=== PATIENT | male | born 1975 | race Two or more races ===

== ENCOUNTER → 2024-02-11 11:20 | Outpatient (REF) | payer OTHER, SELFPAY | LOC: HWRAD 11:20 | PROVIDERS: ATTENDING PHYSICIAN Nurse Practitioner Family | DX: R05.1 Acute cough (principal) | CPT/HCPCS: 71046 ==

== ENCOUNTER 2024-02-21 17:33 | Emergency (ER) | payer OTHER, SELFPAY ==
[2024-02-21 17:35] VITALS: BP 131/83
[2024-02-21 17:57] LABS: % Basophils 0.6 % (0-2); % Immature Granulocytes 0.4 % (0-0.5); % Lymphocytes 15.2 % (20.5-51.1); % Monocytes 9.6 % (1.7-9.3); % Neutrophils 70.2 % (42.2-75.2); Absolute Basophils 0.1 10^3/uL (0-0.2); Absolute Eosinophils 0.3 10^3/uL (0-0.7); Absolute Lymphocytes 1.3 10^3/uL (1.2-3.4); Absolute Monocytes 0.8 10^3/uL (0.1-0.6); Hematocrit 36.6 % (39.0-52.0); Hemoglobin 11.7 g/dL (13.0-18.0); Mean Corpuscular Hgb 18.8 pg (27.0-31.0); Mean Corpuscular Volume 58.8 fL (80.0-94.0); Mean Platelet Volume 9.4 fL (7.4-10.4); Nucleated Red Blood Cells % 0 % (-); Platelet Count 374 10^3/uL (130-400); Red Blood Cell Count 6.22 10^6/uL (4.70-6.10); Red Cell Dist. Width 17.7 % (11.5-14.5); White Blood Cell Count 8.5 10^3/uL (4.8-10.8)
[2024-02-21 18:16] LABS: ALT (SGPT) 112 U/L (0-50); AST (SGOT) 89 U/L (17-59); Albumin 4.3 g/dl (3.5-5.0); Alkaline Phosphatase 136 U/L (38-126); Blood Urea Nitrogen 13 mg/dl (9-20); COVID-19 Antigen Negative (Negative); Calcium 9.4 mg/dl (8.4-10.2); Carbon Dioxide 18 mmol/L (22-30); Chloride 101 mmol/L (98-107); Glucose 126 mg/dl (70-99); Potassium 4.6 mmol/L (3.5-5.1); Sodium 138 mmol/L (135-145); Total Bilirubin 0.7 mg/dl (0.2-1.3); Total Protein 7.3 g/dl (6.3-8.2); eGFR > 60.00
--- NOTE | 2024-02-21 22:08 | ED.GENMED ---
History of Present Illness
General
Chief Complaint: Breathing Problem
Source: patient
Exam Limitations: none
Time Seen by Provider: 02/21/24 20:46
Nursing documentation reviewed up to this point in time: agreed with
History of Present Illness
History of Present Illness:
Patient diagnosed with pneumonia 2 weeks ago and treated with Zithromax, presents to ED secondary to recurrent chills, low-grade fever, along with cough over the past 3 days. Patient spoke with his primary care physician and was prescribed
doxycycline, which was started yesterday. Denies nausea, vomiting, or diarrhea. Denies shortness of breath. Denies headache. Denies dizziness. Denies neck pain. Denies decreased appetite. Of note, when patient was originally diagnosed with
pneumonia, patient states that it was based on checks x-ray along with history of his son who was admitted and treated for pneumonia. When completing Zithromax, patient states that his symptoms have resolved completely. Patient thought he was back
to his baseline health for 3 days, until his symptoms returned. Denies recent travel or surgery. Denies back pain. Denies leg pain or swelling.
Review of Systems
Review of Systems
Allergies reviewed?: Yes
All Other Systems: ROS reviewed and negative except as documented in HPI and ROS
Constitutional: Reports fever and chills
EENT: Reports no symptoms
Respiratory: Reports cough; Denies trouble breathing
Cardiac: Reports no symptoms; Denies chest pain
ABD/GI: Reports no symptoms; Denies abdominal pain, vomiting or diarrhea
Musculoskeletal: Reports no symptoms
Skin: Reports no symptoms
Neurological: Reports no symptoms; Denies dizzy or headache
Phy Exam
Physical Exam
Physical Exam:
Physical Exam
General: no apparent distress, not acutely ill. afebrile.
Head: nc/at. eomi
Neck: supple. no meningeal signs.
Heart: s1/s2 regular rate and rhythm, no murmur. equal radial pulses.
Lungs: no acute respiratory distress. clear bilaterally
Abdomen: normal bowel sounds. not tender.
Neuro: alert and oriented. no focal neurological deficits
Skin: no rash
Psychiatric: well kept. interactive and cooperative
Extremities: no edema. no calf tenderness.
Scores
Heart Failure Risk
Heart Failure Risk Score: Not Applicable
Course
Orders/Labs/Results
Orders:
Orders
02/21/24 17:39
CR Chest - 2 Views Urgent
Comment:
Reason For Exam: respiratory distress
02/21/24 17:49
COVID-19 Antigen Urgent
Source: Nasal Swab
Complete Blood Count/With Diff Urgent
Comprehensive Metabolic Panel Urgent
Influenza A+B Rapid Molecular Urgent
CORNELIO Source: Nasal Swab
Specimen Description:
Abnormal Lab Results
02/21/24
17:49
RBC 6.22 H 10^6/uL
(4.70-6.10)
Hgb 11.7 L g/dL
(13.0-18.0)
Hct 36.6 L %
(39.0-52.0)
MCV 58.8 L fL
(80.0-94.0)
MCH 18.8 L pg
(27.0-31.0)
MCHC 32.0 L g/dL
(33.0-37.0)
RDW 17.7 H %
(11.5-14.5)
Absolute Monos (auto) 0.8 H 10^3/uL
(0.1-0.6)
Lymphocytes % 15.2 L %
(20.5-51.1)
Monocytes % 9.6 H %
(1.7-9.3)
Carbon Dioxide 18 L mmol/L
(22-30)
Glucose 126 H mg/dl
(70-99)
AST 89 H U/L
(17-59)
ALT 112 H U/L
(0-50)
Alkaline Phosphatase 136 H U/L
(38-126)
02/21/24 17:49
02/21/24 17:49
Vital Signs
Initial and Last Documented VS:
Initial Vital Signs
Temp Pulse Resp BP Pulse Ox
98.7 F 107 16 131/83 98
02/21/24 17:35 02/21/24 17:35 02/21/24 17:35 02/21/24 17:35 02/21/24 17:35
Last Documented Vital Signs
Temp Pulse Resp BP Pulse Ox
98.8 F 91 17 128/78 97
02/21/24 22:23 02/21/24 22:23 02/21/24 22:23 02/21/24 22:23 02/21/24 22:23
MDM/Problems Addressed
MDM/Problems Addressed:
Chest x-ray report reviewed and discussed with patient and spouse. History and exam concerning for incompletely treated pneumonia versus new pneumonia versus viral illness. At this time, I believe doxycycline is an appropriate treatment, which I
advised the patient to continue to take, along with PCP follow-up next week. Patient otherwise is afebrile, alert, awake, oriented, and nontoxic-appearing, at time of discharge.
*Critical Care Note
Total Time (30-74mins, 75-104mins- exclusive of procedures): Not Applicable
ED Attending Note
-
Portions of this chart may have been created with voice recognition software.� Occasional wrong word or��sound alike� substitutions may have occurred due to the inherent limitations of voice recognition software.
Discharge Plan
Departure
Patient Disposition: Home (Routine Discharge)
Date of Disposition: 02/21/24
Time of Disposition: 22:09
Patient with high blood pressure during this ER visit?: Yes
Condition: Good
Discharge Problem:
Pneumonia
Instructions: Pneumonia in adults
Prescriptions:
New
benzonatate 100 mg capsule
100 mg PO TID PRN (Reason: Cough) Qty: 20 0RF
Referrals:
Yuan Morrow MD [Family Provider] -
Activity Restrictions/Additional Instructions:
As discussed, please follow-up with your primary care physician for reevaluation next week. Your prescription has been sent electronically to [facility] pharmacy in [place].
Interventions
Interventions:
*Risk Screen - Suicide Last Done: 02/21/24 17:35
*General Assessment Last Done: 02/21/24 17:35
*Neglect/Abuse Screening Last Done: 02/21/24 17:35
ED- Fall Risk Assessment Last Done: 02/21/24 20:24
*ED COVID-19 Vaccine History Last Done: 02/21/24 20:24
*Nursing Disposition Last Done: 02/21/24 22:28
ED- Cardiac Assessment Last Done: 02/21/24 20:24
ED- Pulmonary Assessment Last Done: 02/21/24 20:24
Discharge Date and Time
Discharge Date/Time: 02/21/24 22:28
Print Language: CHADIAN
[2024-02-21 22:23] VITALS: BP 128/78
== END 2024-02-21 22:28 | disposition home or self-care (01) ==
LOC: EMR 17:33
PROVIDERS: EMERGENCY PHYSICIAN Emergency Medicine; FAMILY PHYSICIAN Family Medicine
DX: J18.9 Pneumonia, unspecified organism (principal)
CPT/HCPCS: 99284; 71046; 80053; 85025; 87502; 87811